=== PATIENT | female | born 1955 | race Caucasian/White ===

== ENCOUNTER 2022-06-07 01:24 | Emergency (ER) | payer OTHER, SELFPAY ==
[2022-06-07 01:26] VITALS: BP 113/76; PULSE 113; RESP 18; TEMP 37.3; O2SAT 94
--- NOTE | 2022-06-07 03:54 | ED.GENADULT ---
HPI - General Adult General Chief complaint: Back Pain/Injury Stated complaint: lower back pain Time Seen by Provider: 06/07/22 03:20 History of Present Illness HPI narrative: This is a 67-year-old female presenting ED with chief complaint of back pain. Patient was doing yd work yesterday when she strained her back. Now she has pain in the right parathoracic and lumbar region. She has been taking Motrin and Tylenol with minimal relief. She denies any numbness tingling weakness the family, she has been urinating and having bowel movements as normal. Related Data Allergies Allergy/AdvReac Type Severity Reaction Status Date / Time Cephalosporins Allergy Mild Rash Verified 06/07/22 01:25 suflosporins Allergy Mild Rash Uncoded 06/07/22 01:25 PMFSH Past Medical History Medical History Colon cancer Hyperlipidemia Hypertension Social History Social History Social History: Positive for occasional tobacco and etoh use Exam Narrative: APPEARANCE: No apparent distress. Head: atraumatic. EYES: EOMI, NOSE: Atraumatic NECK: Trachea midline RESPIRATORY: No increased rate of breathing CARDIOVASCULAR: RRR, ABDOMINAL: Non-distended MUSCULOSKELETAl: tenderness palpation in the right parathoracic and paralumbar muscles. No midline tenderness. NEURO: Alert. Moving 4/4 extremities , no saddle anesthesia, strength is intact in lower extremities SKIN:: Warm, dry. Normal color PSYCHIATRIC: Normal affect Course Vital Signs Vital signs: Vital Signs Temperature 99.1 F 06/07/22 01:26 Pulse Rate 113 H 06/07/22 01:26 Respiratory Rate 18 06/07/22 01:26 Blood Pressure 113/76 06/07/22 01:26 Pulse Oximetry 94 06/07/22 01:26 Oxygen Delivery Room Air 06/07/22 01:26 Temperature 99.1 F 06/07/22 01:26 Pulse Rate 113 H 06/07/22 01:26 Respiratory Rate 18 06/07/22 01:26 Blood Pressure 113/76 06/07/22 01:26 Pulse Oximetry 94 06/07/22 01:26 Oxygen Delivery Room Air 06/07/22 01:26 Medical Decision Making MDM Narrative Medical decision making narrative: -Presentation: 67-year-old female presenting with back pain after doing yd work. 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 Patient does have a history of cancer but has no midline spinal tenderness or neurologic findings. Her story is consistent with musculoskeletal strain. There are no other red flags on history or physical. Patient will be treated symptomatically. She will be discharged with primary care follow-up. -RX: Robaxin, lidocaine patch, Motrin, Tylenol Vital Signs Vital Signs: Vital Signs Temperature 99.1 F 06/07/22 01:26 Pulse Rate 113 H 06/07/22 01:26 Respiratory Rate 18 06/07/22 01:26 Blood Pressure 113/76 06/07/22 01:26 Pulse Oximetry 94 06/07/22 01:26 Oxygen Delivery Room Air 06/07/22 01:26 Temperature 99.1 F 06/07/22 01:26 Pulse Rate 113 H 06/07/22 01:26 Respiratory Rate 18 06/07/22 01:26 Blood Pressure 113/76 06/07/22 01:26 Pulse Oximetry 94 06/07/22 01:26 Oxygen Delivery Room Air 06/07/22 01:26 Discharge Plan Discharge Clinical Impression: Strain of lumbar region Patient Disposition: Home, Self-Care Condition: Stable Instructions: Antibiotic
[2022-06-07] MEDS: IBUPROFEN 400 MG TABLET 800 MG PO (04:13)
[2022-06-07] MEDS: HYDROcodone/acetaminophen (*CRX) 5-325 MG TABLET 1 TAB PO (04:14)
[2022-06-07] MEDS: methocarbamoL 750 MG TABLET 1500 MG PO (04:14)
== END 2022-06-07 04:30 | disposition home or self-care (01) ==
PROVIDERS: Emergency Provider Emergency Medicine
DX: S39.012A Strain of muscle, fascia and tendon of lower back, initial encounter (principal); E78.5 Hyperlipidemia, unspecified; I10 Essential (primary) hypertension; Z85.038 Personal history of other malignant neoplasm of large intestine; X50.9XXA Other and unspecified overexertion or strenuous movements or postures, initial encounter; Y93.H2 Activity, gardening and landscaping
CPT/HCPCS: 99283; A9270